=== PATIENT | male | born 1975 | race American Indian/Alaskan Native ===

== ENCOUNTER 2017-01-14 21:22 | Emergency (ER) | payer MEDICAID ==
[2017-01-14 21:22] VITALS: BMI 21.4
--- NOTE | 2017-01-14 22:03 | ED PDOC ---
HPI: Psych/Substance Abuse Time Seen by Provider: 01/14/17 21:30 Chief Complaint (Nursing): Alcohol Ingestion Chief Complaint (Provider): possible etoh History Per: Patient, EMS Additional History Per: Patient, EMS Additional Complaint(s): 41 y/o male brought in by EMS for eval of possible alcohol intoxication. As per EMS, [facility] called to take patient since he was assumed to be intoxicated. Patient denies alcohol use, acute medical or psychiatric complaints at this time. Past Medical History Reviewed: Historical Data, Nursing Documentation, Vital Signs Vital Signs: Last Vital Signs Temp 96.7 F L 01/14/17 21:24 Pulse 85 01/14/17 21:24 Resp 18 01/14/17 21:24 BP 163/106 H 01/14/17 21:24 Pulse Ox 100 01/14/17 21:24 - Medical History PMH: Asthma, Sickle Cell Disease ( PER PATIENT) Other PMH: legally blind - Family History Family History: States: Unknown Family Hx - Immunization History Hx Tetanus Toxoid Vaccination: No Hx Influenza Vaccination: No Hx Pneumococcal Vaccination: No - Home Medications Home Medications: Ambulatory Orders Medication Instructions Recorded No Known Home Med 08/19/16 - Allergies Allergies/Adverse Reactions: Allergies Allergy/AdvReac Type Severity Reaction Status Date / Time No Known Allergies Allergy Verified 12/05/16 17:21 Review of Systems ROS Statement: Except As Marked, All Systems Reviewed And Found Negative Physical Exam - Reviewed Nursing Documentation Reviewed: Yes Vital Signs Reviewed: Yes - Physical Exam Appears: Positive for: Well, Non-toxic, No Acute Distress Head Exam: Positive for: ATRAUMATIC, NORMAL INSPECTION, NORMOCEPHALIC Skin: Positive for: Normal Color Eye Exam: Positive for: Other (right pupil dilation, cloudy lens (chroinc)) ENT: Positive for: Normal ENT Inspection Cardiovascular/Chest: Positive for: Regular Rate, Rhythm Respiratory: Positive for: Normal Breath Sounds Gastrointestinal/Abdominal: Positive for: Normal Exam Extremity: Positive for: Normal ROM Neurologic/Psych: Positive for: Alert, Oriented - Laboratory Results Result Diagrams: 01/14/17 22:25 01/14/17 22:25 - ECG ECG: Positive for: Viewed By Me (reviewed by ED attending) ECG Rhythm: Positive for: Sinus Rhythm O2 Sat by Pulse Oximetry: 100 - Progress ED Course And Treament: labs, accucheck Patient given Potassium PO for 3.1 level, EKG ordered. 2:00 Patient awake, alert, oriented x3; ambulating with steady gait. Tolerated sandwich. Patient is stable for discharge at this time. Patient was advised to follow up with PMD in 2-3 days Disposition - Clinical Impression Clinical Impression: Alcohol use - Patient ED Disposition Is Patient to be Admitted: No Counseled Patient/Family Regarding: Studies Performed, Diagnosis, Need For Followup - Disposition Referrals: [facility] [Outside] Disposition: Routine/Home Disposition Time: 02:05 Condition: STABLE Instructions: At-Risk Alcohol Use (ED)
[2017-01-14 22:36] LABS: BASO # 0.1 K/uL (0.0-0.2); BASO % 0.8 % (0.0-2.0); EOS # 0.5 K/uL (0.0-0.7); EOS % 5.5 % (0.0-4.0); HEMATOCRIT 37.1 % (35.0-51.0); LYMPH # 1.5 K/uL (1.0-4.3); LYMPH % 15.7 % (20.0-40.0); MEAN CELL VOLUME 91.6 fl (80.0-94.0); MEAN CORPUSCULAR HEMOGLOBIN 30.3 pg (27.0-31.0); MEAN CORPUSCULAR HGB CONC 33.1 g/dL (33.0-37.0); MEAN PLATELET VOLUME 8.4 fl (7.2-11.7); MONO # 0.5 K/uL (0.0-0.8); MONO % 4.6 % (0.0-10.0); NEUT # 7.2 K/uL (1.8-7.0); NEUT % 73.4 % (50.0-75.0); RED CELL DISTRIBUTION WIDTH 13.6 % (11.5-14.5); WHITE BLOOD COUNT 9.8 K/uL (4.8-10.8)
[2017-01-14 22:43] LABS: ALB/GLOB RATIO 1.2 (1.0-2.1); ALCOHOL SERUM 42 mg/dl (0-10); ALKALINE PHOSPHATASE 78 U/L (38-126); ALT/SGPT 34 U/L (21-72); AST/SGOT 37 U/L (17-59); BILIRUBIN,TOTAL 0.1 mg/dl (0.2-1.3); BLOOD UREA NITROGEN 13 mg/dl (9-20); CALCIUM 8.7 mg/dL (8.4-10.2); CARBON DIOXIDE 24 mmol/L (22-30); CHLORIDE 105 mmol/L (98-107); GFR AFRICAN-AMERICAN > 60; GLUCOSE,RANDOM 125 mg/dL (75-110); SODIUM 142 mmol/l (132-148); TOTAL PROTEIN 7.6 G/DL (6.3-8.2)
[2017-01-14 22:54] LABS: POTASSIUM 3.1 MMOL/L (3.6-5.0)
[2017-01-15] MEDS ORDERED: Potassium Chloride 20 mEq ER Tab PO ONE (00:03)
[2017-01-15 04:13] VITALS: BP 151/86; PULSE 76; RESP 17; TEMP 98.1; O2SAT 98
--- NOTE | 2017-01-16 12:01 | CARD ---
APPROVED REPORT EKG Measurement Heart [id number] <Conclusion> Normal sinus rhythm Rightward axis Borderline ECG
== END 2017-01-15 05:45 | disposition home or self-care (01) ==
LOC: H.ER 21:22
DX: F10.10 Alcohol abuse, uncomplicated (principal); J45.909 Unspecified asthma, uncomplicated